=== PATIENT | male | born 1985 | race Caucasian/White ===

== ENCOUNTER 2016-07-04 22:17 | Emergency (ER) | payer OTHER ==
[2016-07-04 22:34] VITALS: BP 162/108; PULSE 91; RESP 18; TEMP 96.3; O2SAT 98
== END 2016-07-04 23:00 | disposition home or self-care (01) | DRG 563 ==
LOC: ED 22:17
DX: S39.012A Strain of muscle, fascia and tendon of lower back, initial encounter (principal)
CPT/HCPCS: 99282

== ENCOUNTER 2016-07-31 22:26 | Emergency (ER) | payer OTHER ==
[2016-07-31 22:58] VITALS: TEMP 97.8
[2016-07-31] MEDS ORDERED: NOVOLOG 70/30 FLEXPEN SC SCH (23:30)
[2016-07-31 23:35] LABS: BASOPHILS % (AUTO) 1 % (0-3); EOSINOPHILS % (AUTO) 3 % (0-9); HEMATOCRIT 37 % (39-53); MEAN CORPUSCULAR HGB CONC 36.2 gm/dl (32.0-36.0); MONOCYTES % (AUTO) 7.4 % (0-12); NEUTROPHILS % (AUTO) 53.1 % (37-80)
[2016-07-31 23:39] LABS: MEAN CORPUSCULAR VOLUME 79 fL (80-100)
[2016-07-31 23:48] LABS: CALCIUM 8.9 mg/dl (8.5-10.1); POTASSIUM 4.3 mMol/L (3.5-5.1)
[2016-07-31] MEDS ORDERED: CEPHALEXIN 250 MG/5 ML BOTTLE PO ONE (23:58)
[2016-08-01 00:54] VITALS: RESP 16
[2016-08-01 00:55] VITALS: BP 147/99; PULSE 91; O2SAT 98
== END 2016-08-01 00:40 | disposition home or self-care (01) | DRG 639 ==
LOC: ED 22:26
DX: E11.621 Type 2 diabetes mellitus with foot ulcer (principal); L97.523 Non-pressure chronic ulcer of other part of left foot with necrosis of muscle; Z79.4 Long term (current) use of insulin
CPT/HCPCS: 36415; 73620; 80048; 85025; 87040; 99283

== ENCOUNTER 2018-08-25 14:58 | Emergency (ER) | payer OTHER ==
[2018-08-25 15:23] VITALS: TEMP 97.6
[2018-08-25 15:53] LABS: BASOPHILS % (AUTO) 1 % (0-3); EOSINOPHILS % (AUTO) 2 % (0-9); HEMATOCRIT 28 % (39-53); HEMOGLOBIN 8.8 gm/dl (13.5-17.7); LYMPHOCYTES % (AUTO) 18.6 % (10-50); MEAN CORPUSCULAR HGB CONC 31.7 gm/dl (32.0-36.0); MEAN CORPUSCULAR VOLUME 85 fL (80-100); MONOCYTES % (AUTO) 5.1 % (0-12); NEUTROPHILS % (AUTO) 73.4 % (37-80)
[2018-08-25 17:12] VITALS: BP 118/78; PULSE 78; RESP 18; O2SAT 99
== END 2018-08-25 17:09 | disposition home or self-care (01) | DRG 869 ==
LOC: ED 14:58
DX: B99.9 Unspecified infectious disease (principal); Z48.01 Encounter for change or removal of surgical wound dressing; Z89.519 Acquired absence of unspecified leg below knee; E10.9 Type 1 diabetes mellitus without complications
CPT/HCPCS: 36415; 85025; 99282; A6219

== ENCOUNTER 2018-09-19 16:58 | Emergency (ER) | payer SELFPAY, OTHER | END 2018-09-19 20:00 | disposition home or self-care (01) | LOC: ED 16:58 ==